=== PATIENT | female | born 1985 | race Caucasian/White ===

== ENCOUNTER 2025-03-02 00:11 | Emergency (ER) | payer OTHER, SELFPAY ==
[2025-03-02 00:12] VITALS: BP 137/85; PULSE 120; RESP 16; TEMP 36.6; O2SAT 99; BMI 33.7
--- NOTE | 2025-03-02 00:18 | EX.ED.UPPERE ---
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 No numbness or loss of function. She was involved with caring for the patient but did not have any blood on her gloves where she was stabbed and the razor had not been used on the patient prior to this injury. She states mom of the infant is here and being tested out of precaution but there are no known blood-borne illnesses in the or the mother. Tetanus Immunization: 5-10 years PFSH PFS Medical History no medical history Allergy/AdvReac Type Severity Reaction Status Date / Time Penicillins (PCN) Allergy unknown Verified 03/02/25 00:18 Social History Smoking Status: Never smoker ROS ROS ED Constitutional Constitutional ED: Denies chills or fever(s) Musculoskeletal Musculoskeletal: Reports extremity pain; Denies neck pain Integumentary Reports laceration; Denies Abrasions, rash or wounds Neurologic Neurologic: Denies paresthesias or weakness EXAM Physical Exam Const Vital Signs: 03/02/25 00:12 Temperature 97.8 F Temperature Source Oral Pulse Rate 120 H Respiratory Rate 16 Blood Pressure 137/85 H Blood Pressure Mean 102 Pulse Ox 99 Oxygen Delivery Method Room Air Positive well nourished and well developed General Appearance ED: well developed and NAD Neck full ROM and supple Back/Spine normal ROM and normal to inspection Extremity full ROM Extremity Narrative: 0.5 cm full-thickness laceration curvilinear to the radial aspect of the left index finger, just proximal to the PIPJ. There is no pulsatile bleeding. Full range of motion present no bony tenderness. Neuro oriented x3, no focal motor deficits and no sensory deficits noted Sensorium / Orientation: alert Psych mental status grossly normal and thought process normal Skin no wounds Rashes: no rashes MDM MDM MDM Narrative Medical decision making narrative: We discussed together the pros and cons of repair versus bandaging without repair, and she is amenable to repairing this. See the procedure note. There was no contact with the 's blood here, so transmission of any blood-borne pathogen would be unlikely, so I do not think the patient needs any postexposure prophylaxis or bloodwork for that reason. Procedures Lacerations left index finger: Length: 0.5 cm Depth: Sub Q Shape: Linear Prep: Sterile Conditions and Chlorhexadine Laceration repair: Irrigated, Lidocaine (1%, 1cc), Local and Skin sutures Irrigated (ml): 50 Number of Sutures/Cathy: 2 Suture Information: Ethilon, Simple and 5-0 Discharge Plan Triage Chief Complaint: Laceration ED Provider: Ramo Foley Dx/Rx/DC Orders Clinical Impression: Laceration of left index finger Stand Alone Forms: Work Status Form Referrals: Health,Employee [Non-Staff -Ordering Privileges, None] - 7 Days for suture removal Print Language: Kyrgyz Disposition Disposition: Home, Self Care
--- OUTSIDE RECORDS SUMMARY | 2025-03-02 00:35 | XMS RPT_ITS ---
Author Name Auto Generated Organization [facility] No Problem Records Found PROCEDURES No Procedure Records Found RESULTS LIPID PANEL, STANDARD Collected: 02/17/2025 8:37 AM Status: F Source: [facility] Order Comment: 0; 0; 0; 0; 0 TYPE CODE TESTS RESULT OUT OF RANGE REFERENCE UNITS LAB [id number] CHOLESTEROL, TOTAL 146 Normal <200 mg/dL LAB [id number] HDL CHOLESTEROL 60 Normal > OR = 50 mg/dL LAB [id number] TRIGLYCERIDES 89 Normal <150 mg/dL LAB [id number] LDL-CHOLESTEROL 69 Normal mg/dL (calc) Result Comment: Reference ra nge: <100 Desirable range <100 mg/dL for primary prevention; <70 mg/dL for patients with CHD or diabetic patients with > or = 2 CHD risk factors. LDL-C is now calculated using the Dru-Dalton calculation, which is a validated novel method providing better accuracy than the Friedewald equation in the estimation of LDL-C. Dru SS et al. BENITO. 2013;310(19): 0729-2778 (http://education.[facility].[employer]/faq/LVQ768) LAB [id number] CHOL/HDLC RATIO 2.4 Normal <5.0 (calc) LAB [id number] NON HDL CHOLESTEROL 86 Normal <130 mg/dL (calc) Result Comment: For patients with diabetes plus 1 major ASCVD risk factor, treating to a non-HDL-C goal of <100 mg/dL (LDL-C of <70 mg/dL) is considered a therapeutic option. Performed By: #### [id number], 63 99, 7698, 07818 #### [facility] [address], [address] [place] [id number] It Technical Specialist: Gonzalo Pagan MD COMPREHENSIVE METABOLIC PANEL Collected : 02/17/2025 8:37 AM Status: F Source: [facility] TYPE CODE TESTS RESULT OUT OF RANGE REFERENCE UNITS LAB [id number] GLUCOSE 86 Normal 65-99 mg/dL Result Comment: Fasting reference interval LAB [id number] UREA NITROGEN (BUN) 11 Normal 7-25 mg/dL LAB [id number] CREATININE 0.67 Normal 0.50-0.97 mg/dL LAB [id number] EGFR 115 Normal > OR = 60 mL/min/1 .73m2 LAB [id number] BUN/CREATININE RATIO SEE NOTE: 6 (calc) Result Comment: Not Reported : BUN and Creatinine are within reference range. LAB [id number] SODIUM 140 Normal 135-146 mmol/L LAB [id number] POTASSIUM 4.3 Normal 3.5-5.3 mmol/L LAB [id number] CHLORIDE 109 Normal 98-110 mmol/L LAB [id number] CARBON DIOXIDE 20 Normal 20-32 mmol/L LAB [id number] CALCIUM 9.9 Normal 8.6-10.2 mg/dL LAB [id number] PROTEIN, TOTAL 7.1 Normal 6.1-8.1 g/dL LAB [id number] ALBUMIN 4.4 Normal 3.6-5.1 g/dL LAB [id number] GLOBULIN 2.7 Normal 1.9-3.7 g/dL (calc) LAB [id number] ALBUMIN/GLOBUL IN RATIO 1.6 Normal 1.0-2.5 (calc) LAB [id number] BILIRUBIN, TOTAL 0.4 Normal 0.2-1.2 mg/dL LAB [id number] ALKALINE PHOSPHATASE 74 Normal 31-125 U/L LAB [id number] AST 15 Normal 10-30 U/L LAB [id number] ALT 13 Normal 6-29 U/L Performed By: #### 53091, 63 99, 7550, 89587 #### [facility] [address], [address] [place] [address] It Technical Specialist: Gonzalo Pagan MD CBC (INCLUDES DIFF/PLT) Collected: 02/03 8:37 AM Status: F Source: [facility] TYPE CODE TESTS RESULT OUT OF RANGE REFERENCE UNITS LAB [id number] WHITE BLOOD CELL COUNT 7.5 Normal 3.8-10.8 Thousand /uL LAB [id number] RED BLOOD CELL COUNT 5.05 Normal 3.80-5.10 Million/ uL LAB [id number] HEMOGLOBIN 13.9 Normal 11.7-15.5 g/dL LAB [id number] HEMATOCRIT 45.1 High 35.0-45.0 % LAB [id number] MCV 89.3 Normal 80.0-100.0 fL LAB [id number] MCH 27.5 Normal 27.0-33.0 pg LAB [id number] MCHC 30.8 Low 32.0-36.0 g/dL Result Comment: For adults, a slight decrease in the calculated MCHC value (in the range of 30 to 32 g/dL) is most likely not clinically significant; however, it should be interpreted with caution in correlation with other red cell parameters and the patient's clinical condition. LAB [id number] RDW 14.0 Normal 11.0-15.0 % LAB [id number] PLATELET COUNT 371 Normal 140-400 Thousand /uL LAB [id number] MPV 10.2 Normal 7.5-12.5 fL LAB [id number] ABSOLUTE NEUTROPHILS 4515 Normal 0116-0169 cells/uL LAB [id number] ABSOLUTE LYMPHOCYTES 2460 Normal 850-3900 cells/uL LAB [id number] ABSOLUTE MONOCYTES 345 Normal 200-950 cells/uL LAB [id number] ABSOLUTE EOSINOPHILS 120 Normal 15-500 cells/uL LAB [id number] ABSOLUTE BASOPHILS 60 Normal 0-200 cells/uL LAB [id number] NEUTROPHILS 60.2 Normal % LAB [id number] LYMPHOCYTES 32.8 Normal % LAB [id number] MONOCYTES 4.6 Normal % LAB [id number] EOSINOPHILS 1.6 Normal % LAB [id number] BASOPHILS 0.8 Normal % Performed By: #### 67369, 63 99, 7600, 97108 #### [facility] [address], [address] [place] [address] It Technical Specialist: Gonzalo Pagan MD VITAMIN B12 Collected: 8:37 AM Status: F Source: [facility] TYPE CODE TESTS RESULT OUT OF RANGE REFERENCE UNITS LAB [id number] VITAMIN B12 518 Normal 200-1100 pg/mL Performed By: #### 33712, 63 99, 7600, 51383 #### [facility] [address], [address] [place] [address] It Technical Specialist: Gonzalo Pagan MD VITAMIN D,25-OH,TOTAL,IA Collected: 8:37 AM Status: F Source: [facility] TYPE CODE TESTS RESULT OUT OF RANGE REFERENCE UNITS LAB [id number] VITAMIN D,25-OH,TOT AL,IA 58 Normal 30-100 ng/mL Result Comment: Vitamin D St atus 25-OH Vitamin D: Deficiency: <20 ng/mL Insufficiency: 20 - 29 ng/mL Optimal: > or = 30 ng/mL For 25-OH Vitamin D testing on patients on D2-supplementation and patients for whom quantitation of D2 and D3 fractions is required, the [facility](TM) 25-OH VIT D, (D2,D3), LC/MS/MS is recommended: order code 01384 (patients >2yrs). See Note 1 Note 1 For additional information, please refer to http://education.[facility].[employer]/faq/XIA979 (This link is being provided for informational/ educational purposes only.) Performed By: #### 11856, 63 98, 3979, 06325 #### [facility] [address], [address] [place] [id number] It Technical Specialist: Gonzalo Pagan MD ALLERGIES No Allergies Records Found ENCOUNTERS No Encounter Records Found PAYERS No Payer Records Found
[2025-03-02] MEDS: Lidocaine 1% (20 ml mdv) 20 ML Vial INFILT (00:53)
[2025-03-02 00:54] VITALS: BP 137/85; PULSE 97; RESP 16; TEMP 36.6; O2SAT 99
[2025-03-02 07:22] LABS: HIV Nonreactive (Nonreactive); Hepatitis B Surface Antigen Nonreactive (Nonreactive); Hepatitis C Antibody Nonreactive (Nonreactive)
== END 2025-03-02 00:55 | disposition home or self-care (01) ==
LOC: ED 00:31
PROVIDERS: Emergency Provider Emergency Medicine; PCP Nurse Practitioner Family; Visit Provider Emergency Medicine
DX: S61.211A Laceration without foreign body of left index finger without damage to nail, initial encounter (principal); W27.8XXA Contact with other nonpowered hand tool, initial encounter; Y92.239 Unspecified place in hospital as the place of occurrence of the external cause
CPT/HCPCS: 12001; 86703; 86706; 86803; 87340; 99283